=== PATIENT | female | born 1990 | race Caucasian/White ===

== ENCOUNTER 2018-05-12 03:21 | Emergency (ER) | payer OTHER ==
--- NOTE | 2018-05-12 03:52 | PDOC ---
History of Present Illness - General Chief Complaint: Pain Stated Complaint: LOWER ABDOMINAL PAIN Time Seen by Provider: 05/12/18 03:52 - History of Present Illness Initial Comments: Pilar Davis is a 28yo woman with no relevant medical history who presents reporting burning pain with urination for the past few hours. She states that the burning started after having intercourse yesterday evening. Prior to that, she was feeling well. She denies any fevers/chills, hematuria, abdominal/ suprapubic pain, or flank pain. She does not have any vaginal discharge, lesions , or other vaginal symptoms. She has no concerns for STDs and reports only one sexual partner. Ms Davis does not remember exactly when her LMP was, only that it was last month, and does not know whether she could be . Past History - Past Medical History Allergies/Adverse Reactions: Allergies Allergy/AdvReac Type Severity Reaction Status Date / Time No Known Allergies Allergy Verified 05/12/18 04:02 Home Medications: Ambulatory Orders No Home Medications 0 dose .ROUTE UTDICT 07/23/13 Cephalexin Monohydrate [Keflex -] 500 mg PO BID #6 capsule 05/12/18 - Surgical History Appendectomy: Yes - Suicide/Smoking/Psychosocial Hx Smoking History: Never smoked Have you smoked in the past 12 months: No Hx Alcohol Use: No Review of Systems - Review of Systems Comments:: General: No fevers, no chills, no weight or appetite change, no malaise HEENT: No changes in vision, no changes in hearing, no congestion, no sore throat CV: No chest pain, no palpitations, no LE edema Pulm: No SOB, no cough, no wheezing GI: No nausea or vomiting, no change in bowel habits, no melena : No frequency, no urgency. +dysuria Musc: No back pain, no joint swelling, no recent injury Skin: No rash, no lesions, no erythema Endo: No excessive thirst, no heat/cold intolerance Heme: No unusual bruising or bleeding, no swollen glands Neuro: No syncope, no numbness/tingling, no focal weakness Vasc: No claudication Psych: No recent change in mood, no SI or HI *Physical Exam - Physical Exam Comments: General: Comfortable, no acute distress HEENT: PERRL, EOMI, MMM, voice normal, normal neck ROM Cards: RRR, no murmur appreciated Pulm: Comfortable on room air Abd: Soft, nontender, nondistended : No CVA tenderness Ext: Atraumatic. No LE edema. ROM intact. Strength 5/5 and equal bilaterally Vasc: Extremities WWP. Skin: Normal color, no rashes or lesions Neuro: A&Ox3, CN grossly intact, normal speech, motor/sensory grossly intact and symmetric Psych: Mood appropriate to situation Medical Decision Making - Medical Decision Making 05/12/18 03:57 Pilar Davis is an otherwise healthy 28yo woman who presents with dysuria since yesterday evening that started after sexual intercourse. - No vaginal symptoms, abdominal pain, flank pain, hematuria, fevers/chills suggesting systemic infection, stone, or STD. She cannot remeber exactly when her LMP was and does now know if she could be . - Most likely uncomplicated UTI vs local irritation from intercourse - UA, Urine preg, UCx ordered 05/12/18 04:57 - UA suggestive of UTI with 1+ leuk esterase, 7WBC. As Ms Davis is symptomatic, will treat. Giving 1x dose of keflex in ER prior to discharge - Discussed home care, importance of finishing antibiotic, follow up with Ms Davis, who understands and agrees. Discussed with Dr Chandler. Jahaira Block PGY1 *DC/Admit/Observation/Transfer Diagnosis at time of Disposition: UTI (urinary tract infection) - Discharge Dispostion Disposition: HOME Condition at time of disposition: Stable Decision to Admit order: No - Prescriptions Prescriptions: Cephalexin Monohydrate [Keflex -] 500 mg PO BID #6 capsule - Referrals Referrals: Dusty Yang MD [Primary Care Provider] - - Patient Instructions Printed Discharge Instructions: DI for Urinary Tract Infection (UTI) Additional Instructions: Discharge Instructions: - You were seen in the ER for discomfort with urination. This is most likely due to a urinary tract infection (UTI) that causes local irritation. - You have been prescribed an antibiotic for the infection. The first dose was given in the ER. You will need to start taking it at home this evening. It should be taken twice daily for 3 days until the entire prescription is completed. Do not stop taking it early even if you feel better - this can cause the infection to recur. - If you have any bladder (low abdominal) pain, you can use acetaminophen ( Tylenol) or ibuprofen (Motrin, Advil) as needed - Your symptoms should resolve by the time you have completed the antibiotic. If you are not feeling better in 2-3 days, make an appointment to follow up with your primary doctor. - Seek medical care if you notice blood in your urine, stop urinating completely , or develop fevers to 101F and flank/back pain along with painful urination. - Post Discharge Activity
[2018-05-12 04:01] VITALS: BP 115/79; PULSE 97; TEMP 98.1; BMI 26.7
[2018-05-12 04:23] LABS: URINE APPEARANCE CLEAR; URINE BILIRUBIN NEGATIVE (<2.0 mg/dL); URINE COLOR LTYELLOW; URINE GLUCOSE (UA) NEGATIVE (NEGATIVE); URINE KETONE NEGATIVE (NEGATIVE); URINE LEUK ESTERASE 1+ (NEGATIVE); URINE NITRITE NEGATIVE (NEGATIVE); URINE PROTEIN NEGATIVE (NEGATIVE); URINE UROBILINOGEN NEGATIVE mg/dL (0.2-1.0)
[2018-05-12 04:25] LABS: HCG,QUALITATIVE URINE Negative
[2018-05-12 04:36] LABS: EPI CELLS RARE /HPF (FEW); URINE BACTERIA RARE /hpf (NONE SEEN); URINE MUCUS RARE
--- NOTE | 2018-05-12 04:51 | PDOC ---
Attending Attestation - Resident Resident Name: Jahaira Block - ED Attending Attestation I have performed the following: I have examined & evaluated the patient, The case was reviewed & discussed with the resident, I agree w/resident's findings & plan - HPI HPI: 05/12/18 04:50 Pt has dysuria. 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
[2018-05-12] MEDS ORDERED: CEPHALEXIN MONOHYDRATE 500 MG CAPSULE (UD) PO ONE (04:55)
[2018-05-12] MEDS ORDERED: CEPHALEXIN MONOHYDRATE 500 MG CAPSULE (UD) ONE (04:58)
== END 2018-05-12 05:06 | disposition home or self-care (01) ==
LOC: JER 03:21
DX: N39.0 Urinary tract infection, site not specified (principal)
CPT/HCPCS: 81003; 81015; 84703; 87086; 99281-25

== ENCOUNTER 2023-07-09 10:17 | Emergency (ER) | payer OTHER ==
[2023-07-09 11:27] VITALS: BP 124/73; PULSE 80; RESP 18; TEMP 98.2; BMI 25.4
[2023-07-09] MEDS ORDERED: ACETAMINOPHEN INJECTION 100 ML IVPB ONE (11:54)
[2023-07-09] MEDS ORDERED: ONDANSETRON 4 MG/2 ML VIAL ONE (11:54)
[2023-07-09] MEDS: LACTATED RINGERS SOLUTION 1000 ML INFUS.BAG IV ONE (12:11)
[2023-07-09] MEDS: ONDANSETRON 4 MG/2 ML VIAL IVPUSH ONE (12:11)
[2023-07-09] MEDS: ACETAMINOPHEN 1000 MG/100 ML BAG IVPB ONE (12:11)
[2023-07-09] MEDS ORDERED: FAMOTIDINE 20 MG/50 ML IVPB 20 MG/50 ML MG IVPB ONE (12:38)
[2023-07-09] MEDS: FAMOTIDINE 20 MG/50 ML IVPB 20 MG/50 ML MG IVPB ONE (12:42)
[2023-07-09 13:18] LABS: BASO % 0.4 % (0-2.0); EOS % 1.1 % (0-4.5); HEMATOCRIT 33.9 % (32.4-45.2); HEMOGLOBIN 10.7 GM/dL (10.7-15.3); LYMPH % 30.2 % (8-40); MCH 25.6 pg (25.7-33.7); MCHC 31.5 g/dl (32.0-36.0); MEAN CELL VOLUME 81.2 fl (80-96); MEAN PLT VOLUME 7.8 fl (7.5-11.1); MONO % 6.5 % (3.8-10.2); NEUT % 61.8 % (42.8-82.8); PLATELET COUNT 414 10^3/uL (134-434); RBC 4.18 M/mm3 (3.60-5.2); RDW 16.5 % (11.6-15.6); WHITE BLOOD COUNT 7.8 K/mm3 (4.0-10.0)
[2023-07-09 13:23] LABS: EPI CELLS 18 /uL (0-25.1); HYALINE CASTS 0 /uL (0-3.1); URINE APPEARANCE CLEAR; URINE BACTERIA 862 /uL (0-1359); URINE BILIRUBIN NEGATIVE (NEGATIVE); URINE COLOR YELLOW; URINE GLUCOSE (UA) NEGATIVE (NEGATIVE); URINE KETONE NEGATIVE (NEGATIVE); URINE LEUK ESTERASE TRACE (NEGATIVE); URINE NITRITE NEGATIVE (NEGATIVE); URINE PROTEIN NEGATIVE (NEGATIVE); URINE RBC 16 /uL (0-23.9); URINE UROBILINOGEN 0.2 mg/dL (0.2-1.0); URINE WBC 10 /uL (0-25.8)
[2023-07-09 13:37] LABS: POTASSIUM 4.2 mmol/L (3.5-5.1)
[2023-07-09 13:39] LABS: ALBUMIN 3.6 g/dl (3.4-5.0); CALCIUM 8.9 mg/dL (8.5-10.1)
[2023-07-09 13:40] LABS: BLOOD UREA NITROGEN 7.9 mg/dL (7-18)
[2023-07-09 13:42] LABS: CREATININE 0.6 mg/dL (0.55-1.3)
[2023-07-09 13:44] LABS: BILIRUBIN,TOTAL 0.3 mg/dL (0.2-1); TOT PROT 7.8 g/dl (6.4-8.2)
[2023-07-09 13:54] LABS: THROAT:GRP A STREP NOT DETECTED (NOTDETECTED)
[2023-07-09] MEDS ORDERED: DEXAMETHASONE SOD PHOSPHATE 10 MG/1 ML VIAL ONE (14:27)
[2023-07-09] MEDS: DEXAMETHASONE SOD PHOSPHATE 10 MG/1 ML VIAL PO ONE (14:28)
== END 2023-07-09 14:55 | disposition home or self-care (01) ==
LOC: JERFT 10:17
PROC: 3E033GC Introduction of Other Therapeutic Substance into Peripheral Vein, Percutaneous Approach (ICD-10-PCS; principal; 2023-07-09)
PROC: 3E030NZ Introduction of Analgesics, Hypnotics, Sedatives into Peripheral Vein, Open Approach (ICD-10-PCS; 2023-07-09)
PROC: 3E030GC Introduction of Other Therapeutic Substance into Peripheral Vein, Open Approach (ICD-10-PCS; 2023-07-09)
DX: J02.9 Acute pharyngitis, unspecified (principal); J06.9 Acute upper respiratory infection, unspecified; M79.10 Myalgia, unspecified site; R11.0 Nausea; R50.9 Fever, unspecified; R10.13 Epigastric pain; R63.4 Abnormal weight loss; R63.0 Anorexia; Z20.822 Contact with and (suspected) exposure to COVID-19
CPT/HCPCS: 0241U-QW; 36415; 80053; 81003; 84703; 85025; 87651; 99284-25; J0131; J1100